=== PATIENT | female | born 1985 | race African-American/Black ===

== ENCOUNTER 2020-02-02 00:10 | Emergency (ER) | payer SELFPAY ==
[~2020-02-02] VITALS: Ht 162.6 cm; Wt 59.0 kg
[2020-02-02] MEDS ORDERED: HYDROCODONE/APAP 5MG-325MG TAB PO ONE (00:30)
[2020-02-02] MEDS ORDERED: MOTRIN800 MG PO (00:36)
[2020-02-02] MEDS ORDERED: ULTRAM50 MG PO (00:36)
--- NOTE | 2020-02-02 01:32 | NUR ---
AFTER WAITING ALMOST AN HOUR FOR URINE, PT TOLD MD AND RN THAT THERE IS NO WAY SHE COULD BE BC SHE HAD A TUBAL LIGATION. OK TO DISCHARGE HOME WITH MEDS.
== END 2020-02-02 01:34 | disposition home or self-care (01) ==
LOC: FSED 00:10
DX: R10.30 Lower abdominal pain, unspecified (principal); R10.2 Pelvic and perineal pain; N80.9 Endometriosis, unspecified
CPT/HCPCS: 99282